=== PATIENT | female | born 1955 ===

== ENCOUNTER 2021-04-16 18:20 | Emergency (ER) | payer OTHER ==
[~2021-04-16] VITALS: Ht 149.9 cm; Wt 44.5 kg
[2021-04-16 18:27] VITALS: TEMP 97
[2021-04-16 20:18] VITALS: BP 156/76; PULSE 62
== END 2021-04-16 20:23 | disposition home or self-care (01) ==
LOC: COL.ER 18:20
DX: S93.401A Sprain of unspecified ligament of right ankle, initial encounter (principal); W01.0XXA Fall on same level from slipping, tripping and stumbling without subsequent striking against object, initial encounter